=== PATIENT | female | born 1925 | race African-American/Black ===

== ENCOUNTER 2016-06-28 08:36 | Emergency (ER) | payer OTHER, BC ==
--- NOTE | 2016-06-28 08:55 | PDOC ---
History of Present Illness - General History Source: Patient Exam Limitations: No Limitations - History of Present Illness Initial Comments: 06/28/16 09:15 Patient is a 89 year old female with a significant past medical history of anemia who presents to the ED accompanied by son with complaint increased weakness past couple of days. As per son, the patient has been increasingly weaker with low BP. As per son, the patient is usually very self sufficient and self ambulatory. He notes that her spending all day in bed yesterday was unusual for which prompted him to present to the ED. Patient reports bilateral lower extremity pain. Patient states that she has good appetite but over the past few days she reports decrease. Allergy: none SH: lives with son; no alcohol use, no illicit drug use, no smoking <Kenna Mike - Last Filed: 06/28/16 09:14> - General History Source: Patient, Old Records Exam Limitations: No Limitations <Luci Carbone - Last Filed: 06/28/16 12:38> - General Chief Complaint: Weakness Stated Complaint: WEAKNESS/DIZZY Time Seen by Provider: 06/28/16 08:54 Past History <Kenna Mike - Last Filed: 06/28/16 09:14> - Past Medical History Anemia: Yes Asthma: No Cancer: No Cardiac Disorders: No COPD: No CHF: No Diabetes: No GI Disorders: Yes (chr constipation) HTN: No - Psycho/Social/Smoking Cessation Hx Anxiety: No Suicidal Ideation: No Smoking Status: No Smoking History: Never smoked Number of Cigarettes Smoked Daily: 0 Hx Alcohol Use: No Drug/Substance Use Hx: No Substance Use Type: None Hx Substance Use Treatment: No <Luci Carbone - Last Filed: 06/28/16 12:38> - Past Medical History Allergies/Adverse Reactions: Allergies Allergy/AdvReac Type Severity Reaction Status Date / Time No Known Allergies Allergy Verified 06/28/16 08:43 Home Medications: Ambulatory Orders Nitrofurantoin Monohyd/M-Cryst [Macrobid -] 100 mg PO BID #14 capsule 06/28/16 Review of Systems - Review of Systems Able to Perform ROS?: Yes Comments:: 06/28/16 09:17 GENERAL/CONSTITUTIONAL: (+) generalized weakness. No fever or chills. HEAD, EYES, EARS, NOSE AND THROAT: No change in vision. No ear pain or discharge. No sore throat. CARDIOVASCULAR: No chest pain or shortness of breath. RESPIRATORY: No cough, wheezing, or hemoptysis. GASTROINTESTINAL: No nausea, vomiting, diarrhea or constipation. GENITOURINARY: No dysuria, frequency, or change in urination. MUSCULOSKELETAL: (+)bilateral lower extremity weakness. No joint or muscle swelling. No neck or back pain. SKIN: No rash NEUROLOGIC: No headache, vertigo, loss of consciousness, or change in strength/ sensation. ENDOCRINE: No increased thirst. No abnormal weight change. HEMATOLOGIC/LYMPHATIC: No anemia, easy bleeding, or history of blood clots. ALLERGIC/IMMUNOLOGIC: No hives or skin allergy. <Kenna Mike - Last Filed: 06/28/16 09:14> *Physical Exam - Vital Signs Last Vital Signs Temp Pulse Resp BP Pulse Ox 98.7 F 63 18 97/58 97 06/28/16 08:42 06/28/16 08:42 06/28/16 08:42 06/28/16 08:42 06/28/16 08:42 - Physical Exam Comments: 06/28/16 09:17 GENERAL: (+) thin, cachectic. Awake, alert, and fully oriented, in no acute distress HEAD: No signs of trauma EYES: PERRLA, EOMI, sclera anicteric, conjunctiva clear ENT: (+) dry oral mucosa. Auricles normal inspection, hearing grossly normal, nares patent, oropharynx clear without exudates. NECK: Normal ROM, supple, no lymphadenopathy, JVD, or masses LUNGS: Breath sounds equal, clear to auscultation bilaterally. No wheezes, and no crackles HEART: Regular rate and rhythm, normal S1 and S2, no murmurs, rubs or gallops ABDOMEN: Soft, nontender, normoactive bowel sounds. No guarding, no rebound. No masses EXTREMITIES: Normal range of motion, no edema. No clubbing or cyanosis. No cords, erythema, or tenderness NEUROLOGICAL: Cranial nerves II through XII grossly intact. Normal speech. SKIN: Warm, Dry, normal turgor, no rashes or lesions noted. <Kenna Mike - Last Filed: 06/28/16 09:14> ED Treatment Course - LABORATORY CBC & Chemistry Diagram: 06/28/16 09:43 06/28/16 09:43 <Luci Carbone - Last Filed: 06/28/16 12:38> Medical Decision Making - Medical Decision Making 06/28/16 11:06 89-year-old female with no reported past medical history presents to the emergency department with her son who states that the patient has had progressive weakness at home over the past several months worse over the past several days. Differential diagnosis includes but is not limited to: Dehydration , electrolyte abnormality, infection, atypical presentation of ACS, toxic/ metabolic derangement. Plan: 1. Labs 2. IV fluids for hydration 3. EKG 4. Chest x-ray 5. Urine analysis 6. Observe and reevaluate 06/28/16 11:50 Addendum: Labs are reviewed and are noted in the EMR. The urine analysis is positive for nitrites and leukoesterase. Macrobid 100 mg has been ordered as as well as a urine culture. I will hydrate the patient with 1 L of IV fluids and discharge home with her son. Follow-up with primary care physician and return to the ED if symptoms persist, worsen, or new symptoms arise. <Luci Carbone - Last Filed: 06/28/16 12:38> *DC/Admit/Observation/Transfer - Attestations Scribe Attestion: 06/28/16 09:17 Documentation prepared by REYES Robins, acting as medical billing clerk for Luci Carbone MD. <Kenna Mike - Last Filed: 06/28/16 09:14> - Discharge Dispostion Admit: No - Attestations Physician Attestion: 06/28/16 11:07 I, Dr. Luci Carbone, attest that the scribes documentation that appears above has been prepared under my direction and personally reviewed by me in its entirety. I confirmed that the note above accurately reflects all work, treatment, procedures, and medical decision-making performed by me. <Luci Carbone - Last Filed: 06/28/16 12:38> Diagnosis at time of Disposition: Weakness, UTI (urinary tract infection) - Discharge Dispostion Disposition: HOME Condition at time of disposition: Stable - Prescriptions Prescriptions: Nitrofurantoin Monohyd/M-Cryst [Macrobid -] 100 mg PO BID #14 capsule - Referrals Referrals: Gokul Benson MD [Primary Care Provider] - - Patient Instructions Printed Discharge Instructions: DI for Urinary Tract Infection (UTI) Additional Instructions: You are being treated for a urinary tract infection. The antibiotic you're being discharged on is Macrobid 100 mgtake 1 tablet twice daily for 7 days. Please follow-up with your primary care physician within the next 1-3 days and return to the emergency department if symptoms persist, worsen, or new symptoms arise.
[2016-06-28 08:58] VITALS: TEMP 98.7; BMI 16.2
[2016-06-28 09:55] LABS: BASOPHIL 0.6 % (0-2.0); EOSINOPHIL 0.3 % (0-4.5); MCH 25.1 pg (25.7-33.7); MCHC 32.1 g/dl (32.0-36.0); MEAN CELL VOLUME 78.2 fl (80-96); MEAN PLT VOLUME 8.2 fl (7.5-11.1); NEUTROPHILS 80.7 % (42.8-82.8); PLATELET COUNT 310 K/MM3 (134-434); RDW 15.8 % (11.6-15.6); WHITE BLOOD COUNT 12.9 K/mm3 (4.0-10.0)
[2016-06-28 10:20] LABS: ALBUMIN 3.5 g/dl (3.4-5.0); ANION GAP 10 (8-16); BILIRUBIN,TOTAL 1.3 mg/dL (0.2-1.0); CALCIUM 8.6 mg/dL (8.5-10.1); CO2 23 mmol/L (21-32); CREATININE 1.5 mg/dL (0.55-1.02); GLUCOSE,RANDOM 84 mg/dL (74-106); SGPT/ALT 17 U/L (12-78); TOT PROT 7.1 g/dl (6.4-8.2)
[2016-06-28 10:23] LABS: ALK PHOS 62 U/L (45-117); SGOT/AST 44 U/L (15-37); TROPONIN I < 0.02 ng/ml (0.00-0.05)
[2016-06-28] MEDS ORDERED: SODIUM CHLORIDE 1,000 ML IV STA (10:39)
[2016-06-28 11:13] LABS: URINE APPEARANCE CLOUDY; URINE BILIRUBIN NEGATIVE (NEGATIVE); URINE COLOR LTYELLOW; URINE GLUCOSE (UA) NEGATIVE (NEGATIVE); URINE KETONE NEGATIVE (NEGATIVE); URINE NITRITE POSITIVE (NEGATIVE); URINE UROBILINOGEN NEGATIVE E.U./dl (0.2-1.0)
[2016-06-28 11:21] LABS: URINE BLOOD 2+ (NEGATIVE); URINE LEUK ESTERASE 3+ (NEGATIVE); URINE PROTEIN 1+ (NEGATIVE)
[2016-06-28 11:56] LABS: URINE BACTERIA MODERATE /hpf (NONE SEEN); URINE RBC 7 /hpf (0-3); URINE WBC 346 /hpf (3-5)
[2016-06-28] MEDS ORDERED: NITROFURANTOIN MACROCRYSTAL 50 MG CAPSULE (FP) PO SCH (12:00)
--- NOTE | 2016-06-28 12:04 | EKG ---
Test Reason : Blood Pressure : / mmHG Vent. Rate : 058 BPM Atrial Rate : 058 BPM P-R Int : 138 ms QRS Dur : 088 ms QT Int : 420 ms P-R-T Axes : 046 -09 051 degrees QTc Int : 412 ms POOR DATA QUALITY, INTERPRETATION MAY BE ADVERSELY AFFECTED SINUS BRADYCARDIA WITH SINUS ARRHYTHMIA SEPTAL INFARCT , AGE UNDETERMINED ABNORMAL ECG WHEN COMPARED WITH ECG OF 19-APR-2012 09:30, SEPTAL INFARCT IS NOW PRESENT INVERTED T WAVES HAVE REPLACED NONSPECIFIC T WAVE ABNORMALITY IN INFERIOR LEADS T WAVE INVERSION NOW EVIDENT IN ANTERIOR LEADS Confirmed by MD SOLIS, BRITTNEY ([id number]) on 06/28/2016 12:03:52 PM Referred By: Confirmed By:BRITTNEY ELY MD
[2016-06-28] MEDS ORDERED: NITROFURANTOIN MACROCRYSTAL 50 MG CAPSULE (FP) ONE (12:35)
[2016-06-28 12:54] VITALS: BP 102/60; PULSE 65
== END 2016-06-28 12:54 | disposition home or self-care (01) ==
LOC: JER 08:36
PROC: 3E0337Z Introduction of Electrolytic and Water Balance Substance into Peripheral Vein, Percutaneous Approach (ICD-10-PCS; principal; 2016-06-28)
DX: N39.0 Urinary tract infection, site not specified (principal); R53.1 Weakness; D64.9 Anemia, unspecified; K59.04 Chronic idiopathic constipation
CPT/HCPCS: 36415; 71010-TC; 80053; 81003; 81015; 82550; 83690; 84484; 85025; 93005; 93010; 96360; 99284-25

== ENCOUNTER 2017-01-15 14:51 | Inpatient (IN) | payer OTHER, BC ==
[2017-01-15] MEDS ORDERED: traMADol HCL 50 MG TABLET PO ONE (15:37)
[2017-01-15] MEDS ORDERED: traMADol HCL 50 MG TABLET ONE (15:41)
--- NOTE | 2017-01-15 16:25 | PDOC ---
History of Present Illness <Ankur Wright - Last Filed: 01/15/17 17:14> - History of Present Illness Initial Comments: 01/15/17 17:04 The patient is a 89 year old female, with no significant past medical history, who presents to the emergency department with son and friend with pain to her right lateral shoulder and humerus region s/p mechanical fall to her right side around 1:30PM today. As per the patients friend, her and the patient returned from restoration when the patient fell onto her right side as they were walking up the 3 steps to the patient's building. The patients friend reports there is a rail on the left of the steps, the patient ambulates with a cane in her right hand, and as they were stepping up the step, the patient missed the rail when reaching for it with her left arm and fell onto her right side. She denies head trauma or any other injuries. As per the patients friend, the patient walked with minimal assistance to the sofa in the main lobby and EMS was called. The patients only complaint at this time is 9/10 pain to her right lateral shoulder. She presents in a sling placed by EMS. She denies chest pain, shortness of breath, headache and dizziness. She denies fever, chills, nausea, vomit, diarrhea and constipation. She denies dysuria, frequency, urgency and hematuria. Allergies: NKDA <Yeny Roy - Last Filed: 01/15/17 17:28> - General Chief Complaint: Injury Stated Complaint: FALL Time Seen by Provider: 01/15/17 15:23 Past History - Past Medical History Anemia: Yes Asthma: No Cancer: No Cardiac Disorders: No CVA: No COPD: No CHF: No Diabetes: No GI Disorders: Yes (chr constipation) HTN: No - Surgical History Abdominal Surgery: Yes - Suicide/Smoking/Psychosocial Hx Smoking Status: No Smoking History: Never smoked Number of Cigarettes Smoked Daily: 0 Information on smoking cessation initiated: No Hx Alcohol Use: No Drug/Substance Use Hx: No Substance Use Type: None Hx Substance Use Treatment: No <Ankur Wright - Last Filed: 01/15/17 17:14> <Yeny Roy - Last Filed: 01/15/17 17:28> - Past Medical History Allergies/Adverse Reactions: Allergies Allergy/AdvReac Type Severity Reaction Status Date / Time No Known Allergies Allergy Verified 01/15/17 15:13 Home Medications: Ambulatory Orders Nitrofurantoin Monohyd/M-Cryst [Macrobid -] 100 mg PO BID #14 capsule 06/28/16 Review of Systems - Review of Systems Constitutional: No: Chills, Fever Respiratory: No: Cough, Shortness of Breath ABD/GI: No: Nausea, Vomiting Musculoskeletal: Yes: Joint Pain, Muscle Pain Neurological: No: Tingling, Weakness All Other Systems: Reviewed and Negative <Ankur Wright - Last Filed: 01/15/17 17:14> *Physical Exam - Vital Signs Last Vital Signs Temp Pulse Resp BP Pulse Ox 97.9 F 58 L 20 167/72 97 01/15/17 15:14 01/15/17 15:14 01/15/17 15:14 01/15/17 15:14 01/15/17 15:14 <Ankur Wright - Last Filed: 01/15/17 17:14> - Vital Signs Last Vital Signs Temp Pulse Resp BP Pulse Ox 97.9 F 58 L 20 167/72 97 01/15/17 15:14 01/15/17 15:14 01/15/17 15:14 01/15/17 15:14 01/15/17 15:14 - Physical Exam Comments: 01/15/17 17:04 GENERAL: The patient is awake, alert, and fully oriented, in no acute distress. HEAD:[Normal with no signs of trauma. EYES: Pupils equal, round and reactive to light, extraocular movements intact, sclera anicteric, conjunctiva clear. EXTREMITIES: (+) full ROM at right elbow. ROM of right shoulder deferred secondary to pain, tenderness to proximal right lateral shoulder joint. no ecchymosis or swelling. Neurovascular distally intact. Remainder of extremities have normal range of motion, no edema. NEUROLOGICAL: Normal speech, normal gait. PSYCH: Normal mood, normal affect. SKIN: Warm, Dry, normal turgor, no rashes or lesions noted. <Yeny Roy - Last Filed: 01/15/17 17:28> ED Treatment Course - RADIOLOGY Radiology Studies Ordered: Category Date Time Status CHEST - PA [RAD] Stat Radiology 01/15/17 15:37 Ordered SHOULDER-RIGHT [RAD] Stat Radiology 01/15/17 15:37 Ordered - Medications Given in the ED: ED Medications Discontinued Medications Generic Name Dose Route Start Last Admin Trade Name Freq PRN Reason Stop Dose Admin Tramadol HCl 50 mg 01/15/17 15:37 01/15/17 15:45 Ultram - PO 01/15/17 15:38 50 mg ONCE ONE Administration <Ankur Wright - Last Filed: 01/15/17 17:14> - RADIOLOGY Radiograph Interpretation: EXAM#: TYPE/EXAM: RESULT: [id number] RAD/SHOULDER-RIGHT Right shoulder 2 views Clinical information: fall An acute transverse fracture is seen involving the surgical neck of the humerus. There is mild fracture impaction. A probable associated fracture of the greater tuberosity is seen. Impression: Acute proximal humeral fracture. Reported By: Ángel Stinson MD 01/15/17 1629 - Medications Given in the ED: ED Medications Discontinued Medications Generic Name Dose Route Start Last Admin Trade Name Freq PRN Reason Stop Dose Admin Tramadol HCl 50 mg 01/15/17 15:37 01/15/17 15:45 Ultram - PO 01/15/17 15:38 50 mg ONCE ONE Administration <Yeny Roy - Last Filed: 01/15/17 17:28> Medical Decision Making - Medical Decision Making 01/15/17 16:21 A portion of this note was documented by scribe services under my direction. I have reviewed the details of the note, within reason, and agree with the documentation with the following case summary and management plan written by me. 89-year-old female with mechanical trip and fall on steps, direct right upper arm injury, presents with persistent pain and inability to range right upper arm. No sensory deficit, no other injuries. Vital signs normal. Right proximal humerus tenderness, no dislocation deformity. Full range of motion with full strength at the elbow and wrist and hand, neurovascularly intact distally 89-year-old female with mechanical trip and fall on steps, likely proximal humerus fracture. Neurovascularly intact. Isolated injury. Right shoulder x-ray confirms proximal humeral fracture without dislocation pain control, sling, orthopedics follow-up We'll involve case management to assess home situation, family at bedside. 01/15/17 16:59 pt essentially lives on her own except at night. Uses her R hand for her cane. Wont be able to ambulate or care for self, will need better plan of care at home. Will place on obs under Dr. Benson, covered by Dr. Robertson. 01/15/17 17:14 Accepted for inpatient med/surge by Dr. Robertson, requests consultation with Dr. Green of orthopedics which was ordered. <Ankur Wright - Last Filed: 01/15/17 17:14> - Medical Decision Making 01/15/17 17:01 Dr. Rebecca Robertson was paged at the office requesting a call back for doctor to doctor consult. 01/15/17 17:14 Dr. Rebecca Robertson returned the call and accepts the patient for admission. <Yeny Roy - Last Filed: 01/15/17 17:28> *DC/Admit/Observation/Transfer - Discharge Dispostion Admit: Yes <Ankur Wright - Last Filed: 01/15/17 17:14> - Attestations Scribe Attestion: 01/15/17 17:06 Documentation prepared by Yeny Roy, acting as hospitalist medical director for Ankur Wright MD, <Yeny Roy - Last Filed: 01/15/17 17:28> Diagnosis at time of Disposition: Accidental fall Qualifiers: Encounter type: initial encounter Qualified Code(s): W19.XXXA - Unspecified fall, initial encounter Proximal humerus fracture Qualifiers: Encounter type: initial encounter Fracture type: closed Fracture morphology: unspecified fracture morphology Laterality: right Qualified Code(s): S42.201A - Unspecified fracture of upper end of right humerus, initial encounter for closed fracture - Discharge Dispostion Condition at time of disposition: Fair - Referrals Referrals: Gokul Benson MD [Primary Care Provider] - - Patient Instructions - Post Discharge Activity
[2017-01-15 18:10] LABS: BASOPHIL 0.4 % (0-2.0); EOSINOPHIL 0.2 % (0-4.5); MCH 24.8 pg (25.7-33.7); MCHC 31.4 g/dl (32.0-36.0); MEAN CELL VOLUME 79.1 fl (80-96); MEAN PLT VOLUME 8.4 fl (7.5-11.1); NEUTROPHILS 84.4 % (42.8-82.8); PLATELET COUNT 349 K/MM3 (134-434); RDW 16.2 % (11.6-15.6); WHITE BLOOD COUNT 10.2 K/mm3 (4.0-10.0)
[2017-01-15 18:31] LABS: ALBUMIN 3.5 g/dl (3.4-5.0); ALK PHOS 71 U/L (45-117); ANION GAP 9 (8-16); BILIRUBIN,TOTAL 0.6 mg/dL (0.2-1.0); CALCIUM 8.4 mg/dL (8.5-10.1); CO2 22 mmol/L (21-32); CREATININE 1.3 mg/dL (0.55-1.02); GLUCOSE,RANDOM 120 mg/dL (74-106); SGOT/AST 45 U/L (15-37); SGPT/ALT 20 U/L (12-78); TOT PROT 7.4 g/dl (6.4-8.2)
[2017-01-15 21:49] VITALS: BMI 16.1
--- NOTE | 2017-01-16 02:42 | HP ---
Admitting History and Physical - Admission History of Present Illness: Pt is a 89 y/o female with no significant PMH. The patient walks w/ a cane and was walking w/ her friend up the stairs when she reached for the rail on the stairs but fell. The past fell onto her rt side. Pt presented to the ER bc of increased pain of RUE. In the ER pt had XRAY of rt shoulder wc showed acute proximal humeral fx. History Source: Patient, Medical Record - Past Surgical History Past Surgical History: Yes: None - Smoking History Smoking history: Never smoked Aproximately how many cigarettes per day: 0 - Alcohol/Substance Use Hx Alcohol Use: No Home Medications - Allergies Allergies/Adverse Reactions: Allergies Allergy/AdvReac Type Severity Reaction Status Date / Time No Known Allergies Allergy Verified 01/15/17 15:13 - Home Medications Home Medications: Ambulatory Orders NK [No Known Home Medication] 01/15/17 Family Disease History - Family Disease History Family History: Unremarkable Review of Systems - Review of Systems Constitutional: reports: No Symptoms Eyes: reports: No Symptoms HENT: reports: No Symptoms Neck: reports: No Symptoms Cardiovascular: reports: No Symptoms Respiratory: reports: No Symptoms Gastrointestinal: reports: No Symptoms Musculoskeletal: reports: Extremity Pain Physical Examination Vital Signs: Vital Signs Temperature 97.8 F 01/15/17 21:44 Pulse Rate 62 01/15/17 21:44 Respiratory Rate 20 01/15/17 21:44 Blood Pressure 141/69 01/15/17 21:44 O2 Sat by Pulse Oximetry (%) 98 01/15/17 21:53 Constitutional: Yes: Calm HENT: Yes: WNL, Atraumatic Neck: Yes: WNL, Supple Cardiovascular: Yes: WNL, Regular Rate and Rhythm Respiratory: Yes: WNL, Regular, CTA Bilaterally Gastrointestinal: Yes: WNL, Normal Bowel Sounds, Soft Extremities: Yes: Other (RUE w/ pain on movement and limited ROM) Edema: No Neurological: Yes: WNL, Alert, Oriented Labs: CBC, BMP 01/15/17 18:00 01/15/17 18:00 Problem List - Problems (1) Proximal humerus fracture Assessment/Plan: Ortho consult Pain management Pt will need placement for rehab PT eval once cleared by ortho Code(s): S42.209A - UNSP FRACTURE OF UPPER END OF UNSP HUMERUS, INIT FOR CLOS FX Qualifiers: Encounter type: initial encounter Fracture type: closed Fracture morphology: unspecified fracture morphology Laterality: right Qualified Code (s): S42.201A - Unspecified fracture of upper end of right humerus, initial encounter for closed fracture (2) ARF (acute renal failure) Assessment/Plan: Gentle hydration Code(s): N17.9 - ACUTE KIDNEY FAILURE, UNSPECIFIED (3) Accidental fall Code(s): W19.XXXA - UNSPECIFIED FALL, INITIAL ENCOUNTER Qualifiers: Encounter type: initial encounter Qualified Code(s): W19.XXXA - Unspecified fall, initial encounter
--- NOTE | 2017-01-16 10:41 | EKG ---
Test Reason : Blood Pressure : / mmHG Vent. Rate : 065 BPM Atrial Rate : 056 BPM P-R Int : 000 ms QRS Dur : 086 ms QT Int : 460 ms P-R-T Axes : 000 012 027 degrees QTc Int : 478 ms POOR DATA QUALITY, INTERPRETATION MAY BE ADVERSELY AFFECTED NORMAL SINUS RHYTHM WITH FREQUENT PREMATURE ATRIAL COMPLEXES NONSPECIFIC ST ABNORMALITY SEPTAL INFARCT (CITED ON OR BEFORE 28-JUN-2016) ABNORMAL ECG Confirmed by MD SOLIS, BRITTNEY ([id number]) on 01/16/2017 10:40:32 AM Referred By: Confirmed By:BRITTNEY ELY MD
[2017-01-16] MEDS: HEPARIN NA (PORCINE) 5,000 UNITS/ML 1ML VIAL SQ SCH ×2 (11:06→21:20)
[2017-01-16] MEDS ORDERED: morphine SULFATE 4 MG/ML VIAL IVPUSH PRN (12:02)
--- NOTE | 2017-01-16 14:51 | PN ---
Progress Note (short form) - Note Progress Note: Ortho Full consult dictated by Dr. Green a/p Right proximal humerus fx Sling, elevate HOB to 60 degrees, PT eval for ambulation, NWB IVELISSE
--- NOTE | 2017-01-16 21:01 | CONS ---
ORTHOPEDIC CONSULTATION/[facility] DATE OF CONSULTATION: 01/16/2017 HISTORY OF PRESENT ILLNESS: Patient is an 89-year-old female status post a fall, landing directly on her right humerus. She denies LOC, lightheadedness, or dizziness. PHYSICAL EXAMINATION: Patient has tenderness and ecchymosis over the proximal humerus. Full range of motion of elbow, wrist, and fingers. Markedly decreased range of motion of the shoulder. Nontender clavicle, AC joint, acromion, and bicipital groove. X-rays in [facility], which I reviewed, are positive for an impacted right proximal humerus fracture. IMPRESSION: Impacted right proximal humerus fracture. PLAN: Risks, benefits, and alternatives discussed with the patient in great detail. The patient will be treated conservatively in a sling and swathe. Head of bed should be at 60-90 degrees. She needs to be nonweightbearing to her right upper extremity and should get physical therapy for ambulation training, and I will follow her up in the next couple of weeks. She will need about 6-8 weeks before the fracture heals. We can start some physical therapy earlier, but currently, we will treat her just in the sling. LEANNE ESTRELLA M.D. [id number]
[2017-01-17 07:58] LABS: BASOPHIL 0.9 % (0-2.0); EOSINOPHIL 1.4 % (0-4.5); MCH 25.2 pg (25.7-33.7); MCHC 32.5 g/dl (32.0-36.0); MEAN CELL VOLUME 77.5 fl (80-96); MEAN PLT VOLUME 8.9 fl (7.5-11.1); PLATELET COUNT 307 K/MM3 (134-434); RDW 15.7 % (11.6-15.6); WHITE BLOOD COUNT 8.1 K/mm3 (4.0-10.0)
[2017-01-17 08:51] LABS: ALBUMIN 3.1 g/dl (3.4-5.0); ALK PHOS 63 U/L (45-117); ANION GAP 9 (8-16); BILIRUBIN,TOTAL 0.9 mg/dL (0.2-1.0); CALCIUM 8.6 mg/dL (8.5-10.1); CO2 26 mmol/L (21-32); CREATININE 1.3 mg/dL (0.55-1.02); GLUCOSE,RANDOM 86 mg/dL (74-106); SGOT/AST 43 U/L (15-37); SGPT/ALT 16 U/L (12-78); TOT PROT 6.6 g/dl (6.4-8.2)
--- NOTE | 2017-01-17 10:05 | PN ---
Progress Note (short form) - Note Progress Note: Ortho Pt seen and examined s/p right proximal humerus fx PE- + swelling, + ttp, decr rom, nvi a/p Right proximal humerus fx Sling elevate HOB to 60 degrees PT eval for ambulation NWRuth Ann OVIEDO d/c planning d/w Dr. Green
[2017-01-17] MEDS: HEPARIN NA (PORCINE) 5,000 UNITS/ML 1ML VIAL SQ SCH ×2 (10:47→21:48)
--- NOTE | 2017-01-18 00:08 | PN ---
Progress Note, Physician - Current Medication List Current Medications: Active Medications Heparin Sodium (Porcine) (Heparin -) 5,000 unit SQ BID LUCERO Last Admin: 01/17/17 21:48 Dose: Not Given Morphine Sulfate (Morphine Sulfate) 2 mg IVPUSH Q6H PRN PRN Reason: PAIN Last Admin: 01/17/17 10:47 Dose: 1 mg - Objective Vital Signs: Vital Signs Temperature 97.9 F 01/17/17 22:00 Pulse Rate 58 L 01/17/17 22:00 Respiratory Rate 18 01/17/17 22:00 Blood Pressure 122/62 01/17/17 22:00 O2 Sat by Pulse Oximetry (%) 96 01/17/17 21:00 Labs: CBC, BMP 01/17/17 05:23 01/17/17 05:23
[2017-01-18] MEDS: HEPARIN NA (PORCINE) 5,000 UNITS/ML 1ML VIAL SQ SCH ×2 (09:48→21:13)
[2017-01-18] MEDS ORDERED: traMADol HCL 50 MG TABLET PO PRN (12:47)
--- NOTE | 2017-01-18 23:20 | PN ---
Progress Note, Physician History of Present Illness: No new complaints Pt still w/ pain ofr RUE - Current Medication List Current Medications: Active Medications Heparin Sodium (Porcine) (Heparin -) 5,000 unit SQ BID LUCERO Last Admin: 01/18/17 21:13 Dose: Not Given Morphine Sulfate (Morphine Sulfate) 2 mg IVPUSH Q6H PRN PRN Reason: PAIN Last Admin: 01/17/17 10:47 Dose: 1 mg Tramadol HCl (Ultram -) 50 mg PO Q8H PRN PRN Reason: PAIN Last Admin: 01/18/17 14:18 Dose: 50 mg - Objective Vital Signs: Vital Signs Temperature 97.4 F L 01/18/17 23:07 Pulse Rate 68 01/18/17 23:07 Respiratory Rate 20 01/18/17 23:07 Blood Pressure 110/57 01/18/17 23:07 O2 Sat by Pulse Oximetry (%) 96 01/18/17 20:07 Constitutional: Yes: No Distress HENT: Yes: WNL Neck: Yes: WNL, Supple Cardiovascular: Yes: WNL, Regular Rate and Rhythm Respiratory: Yes: WNL, Regular, CTA Bilaterally Gastrointestinal: Yes: WNL, Normal Bowel Sounds, Soft Extremities: Yes: Other (Limited ROM of RUE) Labs: CBC, BMP 01/17/17 05:23 01/17/17 05:23 Problem List - Problems (1) Proximal humerus fracture Assessment/Plan: As per ortho consult no surgical intervention Pain management Pt will need placement for rehab PT eval Code(s): S42.209A - UNSP FRACTURE OF UPPER END OF UNSP HUMERUS, INIT FOR CLOS FX Qualifiers: Encounter type: initial encounter Fracture type: closed Fracture morphology: unspecified fracture morphology Laterality: right Qualified Code (s): S42.201A - Unspecified fracture of upper end of right humerus, initial encounter for closed fracture (2) ARF (acute renal failure) Assessment/Plan: Gentle hydration Check labs in am Code(s): N17.9 - ACUTE KIDNEY FAILURE, UNSPECIFIED (3) Accidental fall Code(s): W19.XXXA - UNSPECIFIED FALL, INITIAL ENCOUNTER Qualifiers: Encounter type: initial encounter Qualified Code(s): W19.XXXA - Unspecified fall, initial encounter
[2017-01-19 07:21] LABS: BASOPHIL 0.7 % (0-2.0); MCH 25.2 pg (25.7-33.7); MEAN CELL VOLUME 78.6 fl (80-96); MEAN PLT VOLUME 8.6 fl (7.5-11.1); NEUTROPHILS 65.5 % (42.8-82.8); PLATELET COUNT 296 K/MM3 (134-434); RDW 15.7 % (11.6-15.6); WHITE BLOOD COUNT 6.8 K/mm3 (4.0-10.0)
[2017-01-19 08:18] LABS: ANION GAP 7 (8-16); CALCIUM 8.7 mg/dL (8.5-10.1); CO2 30 mmol/L (21-32); GLUCOSE,RANDOM 92 mg/dL (74-106)
[2017-01-19 08:23] LABS: ALK PHOS 61 U/L (45-117); BILIRUBIN,TOTAL 0.8 mg/dL (0.2-1.0); CREATININE 1.3 mg/dL (0.55-1.02); SGOT/AST 38 U/L (15-37); SGPT/ALT 15 U/L (12-78); TOT PROT 6.7 g/dl (6.4-8.2)
[2017-01-19] MEDS: HEPARIN NA (PORCINE) 5,000 UNITS/ML 1ML VIAL SQ SCH (10:25)
[2017-01-19 14:41] VITALS: BP 120/52; PULSE 62; TEMP 97.8
== END 2017-01-19 15:03 | DRG 563 ==
LOC: JER 14:51 → JERBED 17:15 → J6S 20:28
PROVIDERS: ADMIT Internal Medicine; ATTEND Internal Medicine
DX: S42.201A Unspecified fracture of upper end of right humerus, initial encounter for closed fracture (principal); N17.9 Acute kidney failure, unspecified; D64.9 Anemia, unspecified; W19.XXXA Unspecified fall, initial encounter; Y93.9 Activity, unspecified; Y92.89 Other specified places as the place of occurrence of the external cause; Y99.9 Unspecified external cause status
CPT/HCPCS: 36415; 71010-TC; 73030-TC-RT; 80053; 85025; 93005; 93010; 97116-GP; 97161-GP; 99282-25; J1644